=== PATIENT | female | born 1930 | race Caucasian/White ===

== ENCOUNTER → 2018-11-10 | Outpatient (CLI) | payer MEDICARE | END | disposition home or self-care (01) | LOC: OIH 10:12 | PROVIDERS: ATTEND Internal Medicine Cardiovascular Disease | DX: I73.9 Peripheral vascular disease, unspecified (principal) | CPT/HCPCS: 71046 ==

== ENCOUNTER → 2018-11-20 | Outpatient (CLI) | payer MEDICARE | END | disposition home or self-care (01) | LOC: SHCH 13:24 | PROVIDERS: ATTEND Internal Medicine Cardiovascular Disease | DX: I73.9 Peripheral vascular disease, unspecified (principal) | CPT/HCPCS: 93925 ==

== ENCOUNTER → 2018-11-24 | Outpatient (CLI) | payer MEDICARE ==
[~2018-11-24] VITALS: Ht 152.4 cm; Wt 85.7 kg
[~2018-11-24] MED LIST: REGADENOSON 0.4 MG/5 ML PF SYG IVP SCH
== END | disposition home or self-care (01) ==
LOC: SHCH 08:39
PROVIDERS: ATTEND Internal Medicine Cardiovascular Disease
DX: I25.10 Atherosclerotic heart disease of native coronary artery without angina pectoris (principal)
CPT/HCPCS: 78452; 93017; 96374; A9500 ×2; J2785

== ENCOUNTER → 2018-12-12 | Outpatient (CLI) | payer MEDICARE | END | disposition home or self-care (01) | LOC: RAH 12:09 | PROVIDERS: ATTEND Internal Medicine Cardiovascular Disease | DX: G31.9 Degenerative disease of nervous system, unspecified (principal) | CPT/HCPCS: 70450 ==